=== PATIENT | female | born 1970 | race Caucasian/White ===

== ENCOUNTER → 2017-09-08 14:03 | Outpatient (CLI) | payer OTHER, SELFPAY ==
[2017-09-11 03:07] LABS: HSV 1 By PCR Negative (Negative)
[2017-09-11 09:05] LABS: HSV 2 By PCR Negative (Negative)
== END ==
PROVIDERS: Family Provider Family Medicine; PCP Family Medicine; Visit Provider Dermatology
DX: L08.9 Local infection of the skin and subcutaneous tissue, unspecified (principal)
CPT/HCPCS: 87529; 87798

== ENCOUNTER → 2020-01-27 09:00 | Outpatient (CLI) | payer OTHER, SELFPAY ==
[2020-01-27 08:50] VITALS: BMI 21.7
--- NOTE | 2020-01-27 09:01 | RAD_ITS ---
STUDY: X-RAY - LEFT WRIST REASON FOR EXAM: Painful cyst of the left wrist. TECHNIQUE: 3 view(s) of the wrist were obtained. COMPARISON: None. FINDINGS: Normal visualized distal radius and ulna. Normal radiocarpal articulation. Normal distal radioulnar articulation. Normal carpal bones. Normal carpal articulations. Normal carpometacarpal articulation of the thumb. Normal second through fifth carpometacarpal articulations. Normal visualized metacarpal bones. The soft tissue structures are unremarkable. RAD/Wrist min 3 Views IMPRESSION: Unremarkable x-ray examination of the left wrist. Electronically Signed: Jose Velez MD at 15:19 EDT Tel , Service support ,
== END ==
PROVIDERS: PCP Family Medicine; Referring Provider Orthopaedic Surgery; Visit Provider Orthopaedic Surgery
DX: M25.532 Pain in left wrist (principal)
CPT/HCPCS: 73110

== ENCOUNTER → 2020-02-10 07:37 | Outpatient (CLI) | payer OTHER, SELFPAY ==
[2020-01-27 08:50] VITALS: BMI 21.7
--- NOTE | 2020-02-10 07:38 | MRI_ITS ---
STUDY: MRI LEFT WRIST WITHOUT CONTRAST REASON FOR EXAM: Left wrist pain, radial sided cyst. TECHNIQUE: Standardized fat and water weighted pulse sequences were obtained in all 3 orthogonal planes. COMPARISON: Radiographs 01/27/2020. FINDINGS: Normal visualized distal radius and ulna. Normal distal radioulnar articulation (DRUJ). Normal triangular fibrocartilaginous complex (TFCC). Normal carpal bones. Normal radiocarpal, intercarpal and midcarpal articulations. Normal pisotriquetral articulation. Normal visualized interosseous scapholunate ligament. Normal extensor tendons. Normal flexor tendons. Normal carpal tunnel with a normal median nerve. Normal carpometacarpal articulation of the thumb. Normal second through fifth carpometacarpal articulations. Normal visualized metacarpal bones. There is a mildly lobulated ganglion cyst dorsal and radial to the scaphoid (inversion recovery axial images 11-15; T2 sagittal images 5-12) measuring 0.6 x 2.3 x 1.6 cm (AP x transverse x length). MRI/Upper Ext Joint Only(Routine) IMPRESSION: Ganglion cyst dorsal and radial to the scaphoid. Electronically Signed: Jose Velez MD at 9:04 EDT Tel , Service support ,
== END ==
PROVIDERS: PCP Family Medicine; Referring Provider Orthopaedic Surgery; Visit Provider Orthopaedic Surgery
DX: M71.332 Other bursal cyst, left wrist (principal)
CPT/HCPCS: 73221

== ENCOUNTER 2020-03-29 12:36 | Day surgery (SDC) | payer OTHER, SELFPAY ==
[2020-02-29 09:35] VITALS: BMI 21.7
[2020-03-29] VITALS (7 sets, daily range): BP systolic 143–171; BP diastolic 60–91; PULSE 66–84; RESP 16–18; TEMP 36.4–37; O2SAT 95–98; BMI 22.3
--- NOTE | 2020-03-29 | GANG_PTH ---
PATIENT: NAHOMY PADGETT LOC: [facility] [place] U#:[id number] AGE/SX: 50/F ROOM: RE03/29/[address]: Dr. Stella Vanegas DO : 1970 BED: DIS: 03/29/2020 SPEC #: [id number] RECD: 03/29/20 08:22 STATUS: TRACY CIRO #: [id number] BRITTNI: 03/29/20 00:[address]: Stella Vanegas DEPT: SURGICAL PATHOLOGY RECD BY: José Lynne ENTERED: 03/30/20 08:23 SP TYPE: GANGLION OTHR DR: Dr. Jacob Sanchez MD Tissues: GANGLION CYST Procedures: Surgery Specimen Level III HEADER OPERATION: Dorsal radial wrist ganglion cyst excision PRE-OP DIAGNOSIS: Ganglion cyst of dorsum of left wrist TISSUE SUBMITTED: Ganglion cyst left radial wrist MICROSCOPIC DIAGNOSIS Ganglion cyst left radial wrist, excision: Consistent with ganglion cyst. KATRIN:prasanna 03/31/20 MICROSCOPIC DESCRIPTION Slides are reviewed. GROSS DESCRIPTION Received in fixative is one container labeled with the patient's name and designated ganglion cyst left radial wrist. The specimen consists of a piece of lopez, indurated tissue measuring 1.8 x 1 x 1 cm. The specimen is serially sectioned and submitted entirely in one cassette. / KATRIN:prasanna 03/30/20 TC:5 [facility]: [id number]
--- NOTE | 2020-03-29 11:00 | HP_ITS ---
This note was generated with Omnigy dictation software. It may contain incorrect words, spelling, and punctuation that were not noted in checking the note before signing. Intake Vital Signs 02/29/20 BMI 21.7 Intake Visit Reasons: left wrist Allergies No Known Allergies Allergy (Unverified 01/27/20 08:53) HPI left wrist: Surgical H&P: Yes Details: Parts of this documentation were recorded by a scribe, this documentation accurately reflects the service provided and the decisions made by me, Dr. Stella Vanegas, DO 02/29/20 0981. NAHOMY PADGETT is a 49 year old F here today for F/U on left wrist ganglion cyst after having MRI completed. Denies numbness, tingling or other associated symptoms. She has increased pain with thumb range of motion. The wrist is now has some achiness. She notes that she is unable to put any pressure on her wrist due to pain. She does also have a burning pain over the radial side of her wrist. ROS Musc Reports joint pain, Reports radiating pain into limb Skin/Breast Reports system reviewed and no additional complaints, except as docu Neuro Yes system reviewed and no additional complaints, except as docu Ortho Exam Right Wrist/Hand Skin/Wound: No Ecchymosis Left Wrist/Hand Skin/Wound: No Ecchymosis WRIST: palpable cyst over radial side of wrist. positive fluid wave Assessment & Plan Problems 1. Ganglion cyst of dorsum of left wrist M67.432 Plan Personally reviewed patients MRI of the left wrist. Patient educated that she does have a ganglion cyst. Treatment options are do nothing or have an aspiration and injection in the office or have it surgically removed. Patient wishes to proceed with left dorsal/radial ganglion cyst excision. Reviewed the pre-operative plans with the patient. Risks and benefits of the procedure were fully explained, including but not limited to infection, neurovascular injury, continued pain, arthritis, stiffness, need for further surgery, re-injury, DVT, PE, general risks of anesthesia, and loss of limb or life. The patient understands all the risks and does wish to proceed with written consent. Educated that she will be placed into a small splint post op and she will need to keep the splint and dressing and clean and dry for about 2 weeks. We discussed the current risk associated COVID-19. While it is understood that there is a community spread of COVID 19 the risk of kamaljit COVID-19 while at [facility] is very low, however, the risk cannot be completely mitigated because of the community spread of the disease. We discussed in detail the risk of exposure to and or potential harm posed by the COVID-19 virus with having a surgery/procedure at this time versus the risk of delaying the surgery/procedure. Is not possible to know either the risk of delaying the surgery procedure or chance of getting an infection with perfect accuracy, but a joint decision was made to proceed at this time with a schedule surgery/procedure as indicated on the consent form. Patient was notified that we will need to comply with any screening or testing [facility] wishes to perform or that surgery may be delayed for any positive results. Follow up 2 weeks post op or sooner if pain, swelling, numbness or associated symptoms, or concerns develop. All questions answered. Patient in agreement of plan. Coding Level of Care Code Off vis,est,level 4 Diagnoses Ganglion cyst of dorsum of left wrist M67.432 COVID (Procedure Consent) Procedure Criteria Procedure Criteria: Yes Elective The surgeon/proceduralist and patient have discussed in detail the risk of exposure to and/or potential harm posed by the COVID-19 virus with having a surgery/procedure at this time versus the risk of? delaying the surgery/procedure. It is not possible to know either the risk of delaying the surgery or procedure or chance of getting an infection with perfect accuracy, but a joint decision was made between the patient and the surgeon/proceduralist ?to proceed at this time with the scheduled surgery/procedure as indicated on the consent form.
[2020-03-29] MEDS: Lactated Ringers 1,000 ML 75 ML IV ×2 (14:11→17:33)
--- NOTE | 2020-03-29 15:05 | OP.PCM_ITS ---
Report of Operation Date of Procedure: 03/29/20 Pre-Operative Diagnosis: left dorsal radial ganglion cyst Post-Operative Diagnosis: same Surgery/Procedure Performed:: left dorsal ganglion cyst excision radar air traffic controller: Rhett Hernadez Type of Anesthesia:: General Anesthesiologist: Srinivas Branch Specimen's removed: ganglion cyst Fluids Replaced: 800cc lr Description of Procedure: Preop note Patient is a 50-year-old female with continued left wrist pain for quite some time head fullness MRI confirms ganglion cyst. Risk benefits alternatives were discussed with patient. Risk include but not limited to blood loss, blood clot, infection, nerve or vessel injury, failure procedure, loss of life and loss of limb. Patient elected proceed with left wrist goal gait dorsal ganglion cyst excision. Operative Patient seen examined preop pulmonary. Left arm was marked. Patient brought to the operating placed supine the operating table. Signed, anesthesia, antibiotics were measured. Left arm was prepped and draped in usual sterile technique with a tourniquet in her upper arm. All bony promises well-padded SCDs placed on her lower lab bilateral lower extremity.We then made marked a curvilinear incision over the aspect over the dorsal radial ganglion. Left long was in left arm with an elevated single and in turn was raised her pressure 250 torr. We then used a 15 blade after timeout to catheter the skin dissect down to times the level of the ganglion cyst. We did tediously and systematically protect all neurovascular structures and tendons at all times. We moved her EPL out of the way except that was right on top of the ganglion. We talked we did took pictures as well that we will give a copy to the family. Presently again protecting all neurovascular structures were able to then dissect and remove the ganglion cyst in its entirety we did find the stalk and ablate the stalk as well. We then irrigated the incision with copious of the sterile saline. We closed the skin with 4-0 Vicryl in a running 4-0 Monocryl. Trach was deflated. Patient taught procedure well no complication transferred recovery room stable condition Postoperative note Left thumb spica Pharm[facility] prescription Call with increased pain numbness tingling further issue arise Follow-up in 2 weeks [place] disclaimer This note was generated with Captimo dictation software. It may contain incorrect words, spelling, and punctuation that were not noted in checking the note before signing. *
--- NOTE | 2020-03-29 15:05 | PCM.DC.ORTHO ---
Discharge Diet: No Restrictions - leave splint on until postop visit in 2 weeks, elevate above heart, call with concerns Discharge Activity: May Not Drive May shower in (days): 1 Ice area for (Minutes): 20 - Every hour while awake. Weight Bearing Status: Weight bearing as tolerated Keep extremity elevated above heart level: Operative Extremity Call your doctor if your incision/area has: Continuous Slow Oozing, Sudden Increased Bleeding, Increased Pain/ Swelling, Increased Redness, Foul Smelling Discharge Call your doctor if you observe: Fever of 101 or Higher, Coldness, Increased Pain, Numbness or Tingling, Change in Color, Calf discomfort Allergies/Adverse Reactions: Allergies No Known Allergies Allergy (Unverified 03/21/20 14:12) Medications to take at Discharge bupropion HCl 150 mg tablet,12 hr sustained-release 150 mg PO DAILY 01/27/20 hydrochlorothiazide 25 mg tablet 25 mg PO DAILY tab 01/27/20 multivitamin 1 tab PO DAILY 01/27/20 sertraline 50 mg tablet 50 mg PO DAILY 01/27/20 trazodone 50 mg tablet 50 mg PO QHS 01/27/20 Hydrocodone Bitart/Apap 5-325 [[place] 5MG-325MG] 1 - 2 tab PO Q6H PRN PRN 5 Days #40 tab 03/29/20 The following prescriptions were given: Hydrocodone Bitart/Apap 5-325 [[place] 5MG-325MG] 1 - 2 tab PO Q6H PRN PRN 5 Days #40 tab PRN Reason: Pain Transmission Status: Received by FRANCISCO XIAO [facility] Primary Care Physician: Jacob Sanchez MD [Primary Care Provider] - Test Results: Test results from this visit will be discussed in further detail at your follow-up appointment, if applicable. Please Follow Up With: Stella Vanegas, DO - [phone]
[2020-03-29] MEDS: Cefazolin 2 GM in 0.9% Normal Saline 100 ML IV (15:32)
[2020-03-29] MEDS: Mupirocin Ointment 22gm Tube 1 APPLIC (17:10)
[2020-03-29] MEDS: HYDROcodone Bitartrate/Apap 5/325 Tablet PO (18:05)
== END 2020-03-29 18:50 | disposition home or self-care (01) ==
LOC: SDC 12:37 → AC 12:38
PROVIDERS: Anesthesiology; PCP Family Medicine; Referring Provider Orthopaedic Surgery; Visit Provider Orthopaedic Surgery
PROC: (CPT 25111; principal; 2020-03-29 15:25)
DX: M67.432 Ganglion, left wrist (principal); Z11.59 Encounter for screening for other viral diseases; I10 Essential (primary) hypertension; F41.9 Anxiety disorder, unspecified; F32.9 Major depressive disorder, single episode, unspecified; Z79.899 Other long term (current) drug therapy
CPT/HCPCS: 01810; 25111; 87635; 88304; C9803; J7120; J2405; U0003

== ENCOUNTER → 2020-06-08 | Outpatient (CLI) | payer OTHER, SELFPAY ==
[2020-04-11 09:25] VITALS: BMI 21.7
== END | disposition home or self-care (01) ==
LOC: LABSPEC 14:45
PROVIDERS: PCP Family Medicine; Referring Provider Family Medicine; Visit Provider Family Medicine
DX: Z20.822 Contact with and (suspected) exposure to COVID-19 (principal)
CPT/HCPCS: 87635; U0005; U0003

== ENCOUNTER → 2021-11-16 | Outpatient (CLI) | payer OTHER, SELFPAY ==
[2021-11-16 18:07] LABS: Anion Gap 5 (5-15); BUN 16 mg/dL (7-18); BUN/Creat Ratio 22.1 RATIO (10-20); Chloride 103 mmol/L (98-107); Cholesterol 256 mg/dL (200); Creatinine, Serum 0.72 mg/dL (0.55-1.02); EST Glomerular Filtration Rate 90 mL/min (>60); Est Glom Filt Rate - Afr Amer 109 mL/min (>60); Glucose 89 mg/dL (74-106); High Density Lipoprotein 55 mg/dL; Potassium 3.8 mmol/L (3.5-5.1); Sodium Level 139 mmol/L (136-145); Triglycerides 204 mg/dL; Very Low Density Lipoprotein 41 mg/dL (5-40)
== END | disposition home or self-care (01) ==
LOC: MFPLAB 14:57
PROVIDERS: PCP Family Medicine; Referring Provider Family Medicine; Visit Provider Family Medicine
DX: I10 Essential (primary) hypertension (principal)
CPT/HCPCS: 36415; 80048; 80061

== ENCOUNTER → 2022-11-18 | Outpatient (CLI) | payer OTHER, SELFPAY ==
[2022-11-18 10:34] LABS: ALB/GLOB Ratio 0.9 RATIO (0.9-2.4); AST(SGOT) 16 U/L (15-37); Alanine Aminotransfer ALT/SGPT 21 U/L (13-56); Albumin, Serum 3.7 g/dL (3.2-5.0); Alkaline Phosphatase 68 U/L (45-117); Anion Gap 4 (5-15); BUN 15 mg/dL (7-18); BUN/Creat Ratio 18.7 RATIO (10-20); Calcium,Total 9.2 mg/dL (8.5-10.1); Chloride 104 mmol/L (98-107); Cholesterol 209 mg/dL (200); EST Glomerular Filtration Rate 80 mL/min (>60); Est Glom Filt Rate - Afr Amer 96 mL/min (>60); Globulin 3.9 g/dL (2.2-4.2); Glucose 86 mg/dL (74-106); High Density Lipoprotein 71 mg/dL; Potassium 3.8 mmol/L (3.5-5.1); Protein, Total 7.6 g/dL (6.4-8.2); Sodium Level 138 mmol/L (136-145); Triglycerides 122 mg/dL; Very Low Density Lipoprotein 24 mg/dL (5-40)
== END | disposition home or self-care (01) ==
PROVIDERS: PCP Family Medicine; Referring Provider Family Medicine; Visit Provider Family Medicine
DX: E78.00 Pure hypercholesterolemia, unspecified (principal)
CPT/HCPCS: 36415; 80053; 80061

== ENCOUNTER → 2023-06-20 | Outpatient (CLI) | payer OTHER, SELFPAY ==
--- NOTE | 2023-06-20 10:37 | BI_ITS ---
MAMMOGRAPHY - BILATERAL SCREENING REASON FOR EXAM: Female, 53 years old. Routine annual screening examination. PERTINENT HISTORY: Non-contributory. TECHNIQUE: Digital bilateral breast maite (3D mammographic acquisition) in the CC and MLO projections. 2-D mediolateral oblique (MLO) and craniocaudad (CC) views of both breasts were obtained. CAD: Full Field Digital Mammography with Computer Added Detection was performed. COMPARISON: Comparison is made with prior outside examination dated April 19, 2022. FINDINGS: Breast Composition: The breasts are extremely dense, which lowers the sensitivity of mammography. There are no dominant masses or suspicious calcifications. No other significant abnormalities are identified. There has been no significant change since the prior study. BI/SCRN MAMM (CAD)W/MAITE BILAT IMPRESSION: Stable bilateral screening mammogram. Yearly follow-up mammogram recommended. (A) ASSESSMENT CATEGORY: BIRADS Category 1: Negative. A letter regarding these results will be sent to the patient by the facility within 30 days. Approximately 10% of breast cancers are not detected by mammography. A normal mammogram should not delay biopsy of a clinically suspicious abnormality. [id number] Electronically Signed: Jermaine Aragon MD at 13:56 EST ,
--- OUTSIDE RECORDS SUMMARY | 2023-06-20 10:50 | XMS RPT_ITS | CCD ---
Author Name Unknown Address [address] [place] [address] Organization [facility] Care Team Providers Care Promotion Producer Name Role Phone Urbano Cardenas MD Primary Care Provider [phone] PROVIDER, UNKNOWN Referring Unavailable URBANO CARDENAS Primary Care Unavailable Urbano Cardenas MD Primary Care Provider [phone] Urbano Cardenas MD Primary Care Provider [phone] URBANO CARDENAS Primary Care Unavailable TAD ROSA Attending Unavail able Allergies Allergy Classification Reported Allergen(s) Allergy Type Date of Onset Reaction(s) Facility (11 sources) Cat; Translations: [CATS] Propensity to adverse reactions 01-29-2006 Cough [facility] Work Phone: (11 sources) Sulfamethoxazole ; Translations: [SULFAMETHOXAZOL E] Drug Allergy 02-15-2010 Hives [facility] Work Phone: Medications Current Medications Medication Drug Class(es) Dates Sig (Normalized) Sig (Original) nystatin [id number] unt/ml oral suspension (1 source) Polyene Antifungal Start: 02-07-2022 End: 02-14-2022 take 5 mL by mouth four times daily nystatin (MYCOSTATIN) 100,000 unit/mL suspension Take 5 mL by mouth four times daily for 7 days. Swish and swallow. 140 mL 0 02/07/2022 02/14/2022 Active Completed/Discontinued Medications Medication Drug Class(es) Dates Sig (Normalized) Sig (Original) clobetasol propionate 0.0005 mg/mg topical ointment (9 sources) Corticosteroid Start: 05-05-2019 clobetasol (TEMOVATE) 0.05 % ointment Apply TO AFFECTED AREA BID x 4 weeks then use once weekly for maintenance 30 g 0 05/05/2019 Active Problems Active Problems Problem Classification Problem Date Documented Date Episodic/Chronic Menopausal disorders (10 sources) Menopausal flushing; Translations: [Menopausal and female climacteric states] Onset: 11-14-2009 Chronic Nonmalignant breast conditions (9 sources) Fibrocystic disease of breast; Translations: [Diffuse cystic mastopathy of unspecified breast] Onset: 07-22-2007 07-22-2007 Chronic Other diseases of bladder and urethra (9 sources) Disorder of bladder; Translations: [Other specified disorders of bladder] Onset: 06-20-2010 06-20-2010 Chronic Other female genital disorders (9 sources) Premenstrual tension syndrome; Translations: [Premenstrual tension syndrome] Onset: 07-22-2007 07-22-2007 Chronic Other female genital disorders (9 sources) Dyspareunia; Translations: [Dyspareunia] Onset: 01-03-2012 01-03-2012 Chronic Other female genital disorders (1 source) Vaginal discharge; Translations: [Other specified noninflammatory disorders of vagina] Episodic Other screening for suspected conditions (not mental disorders or infectious disease) (17 sources) Patient encounter status; Translations: [Encounter for other screening for malignant neoplasm of breast] Onset: 11-14-2009 11-14-2009 Episodic Past or Other Problems Problem Classification Problem Date Documented Date Episodic/Chronic Abdominal pain (10 sources) Left lower quadrant pain; Translations: [Left lower quadrant pain] Onset: 06-20-2010 Episodic Calculus of urinary tract (18 sources) Ureteric stone; Translations: [Calculus of ureter] Onset: 07-28-2007 07-28-2007 Episodic Genitourinary symptoms and ill-defined conditions (9 sources) Nocturia; Translations: [Nocturia] Onset: 06-20-2010 06-20-2010 Episodic Other female genital disorders (9 sources) Cervical intraepithelial neoplasia grade 2; Translations: [Moderate cervical dysplasia] Onset: 01-07-2006 01-07-2006 Episodic Other female genital disorders (9 sources) Female genital organ symptoms; Translations: [Unspecified condition associated with female genital organs and menstrual cycle] Onset: 06-20-2010 06-20-2010 Episodic Other female genital disorders (9 sources) Vulval and/or perineal noninflammatory disorders; Translations: [Noninflammatory disorder of vulva and perineum, unspecified] Onset: 01-03-2012 01-03-2012 Episodic Other female genital disorders (9 sources) Lesion of vulva; Translations: [Other specified noninflammatory disorders of vulva and perineum] Onset: 09-29-2012 05-28-2021 Episodic Other inflammatory condition of skin (9 sources) Pruritus of skin; Translations: [Pruritus, unspecified] Onset: 01-03-2012 01-03-2012 Episodic Spondylosis; intervertebral disc disorders; other back problems (9 sources) Backache; Translations: [Dorsalgia, unspecified] Onset: 06-20-2010 06-20-2010 Episodic Results Test Name Value Interpretation Reference Range Facil ity Vital Signs Date Time Vital Sign Value Performing Clinician Faci litlili 03-25-2022 09:50-0400 Diastolic blood pressure 67 mm[Hg] Nigel Gastelum MD Work Phone: [facility] 03-25-2022 09:50-0400 Heart rate 61 /min Nigel Gastelum MD Work Phone: [facility] 03-25-2022 09:50-0400 Respiratory rate 16 /min Nigel Gastelum MD Work Phone: [facility] 03-25-2022 09:50-0400 SaO2% (BldA) [Mass fraction] 100 % Nigel Gastelum MD Work Phone: [facility] 03-25-2022 09:50-0400 Systolic blood pressure 159 mm[Hg] Nigel Gastelum MD Work Phone: [facility] 03-25-2022 08:20-0400 Body temperature 97.9 [degF] Nigel Gastelum MD Work Phone: [facility] 02-26-2022 09:59-0400 Body height 167.6 cm Tad Eastman MD Work Phone: [facility] 02-26-2022 09:59-0400 Body weight 65.32 kg Tad Eastman MD Work Phone: [facility] 02-26-2022 09:59-0400 Diastolic blood pressure 64 mm[Hg] Tad Eastman MD Work Phone: [facility] 02-26-2022 09:59-0400 Systolic blood pressure 110 mm[Hg] Tad Eastman MD Work Phone: [facility] 01-23-2022 14:35-0400 Body weight 65.86 kg Jasmin Zee APRN.ICT PROGRAMMER Work Phone: [facility] 01-23-2022 14:35-0400 Diastolic blood pressure 80 mm[Hg] Jasmin Zee TANK CLEANING SUPERVISOR.ICT PROGRAMMER Work Phone: [facility] 01-23-2022 14:35-0400 Systolic blood pressure 118 mm[Hg] Jasmin Zee TANK CLEANING SUPERVISOR.ICT PROGRAMMER Work Phone: [facility] Encounters Encounter Date Encounter Type Care Provider Facility Start: 05-07-2023 End: 05-07-2023 ambulatory [facility] Facility:[facility] Start: 05-29-2022 ambulatory UNKNOWN PROVIDER Facili ty:[facility] Start: 05-29-2022 End: 05-29-2022 Subsequent hospital visit by physician [facility] Work Phone: Radiology Procedures Date Procedure Procedure Detail Performing Clinician Start: 05-29-2022 Us breast uni real t kashif with image limited Tad Eastman MD Work Phone: Start: 04-19-2022 ANDREY SCREENING W MAITE Martinez MD Work Phone: Start: 04-19-2022 Mammography Tad Yinka Eastman MD Work Phone: Start: 03-25-2022 Colonoscopy flx dx w /collj spec when pfrmd Tad Eastman MD Work Phone: Start: 03-25-2022 Colonoscopy Tad Yinka Eastman MD Work Phone: Start: 01-23-2022 Urnls dip stick/tabl et rgnt auto w/o microscopy Jasmin Zee APRN.GAURANG Work Phone: Start: 07-09-2018 Mammography Jasmin patterson APRN.CNP Work Phone: Plan of Treatment Date Care Activity Detail Author Start: 03-25-2032 Colonoscopy COLONOSCOPY [facility] Start: 03-25-2032 COLORECTAL CANCER SCREENING COLORECTAL CANCER SCREENING [facility] Start: 03-04-2029 Urine microalbumin profile DTaP,Tdap,Td Vaccine (2 - Td or Tdap) [facility] Start: 04-19-2023 Mammography [facility] Start: 01-31-2023 Covid-19 Vaccine () Covid-19 Vaccine () [facility] Start: 01-31-2023 Influenza vaccination Influenza Vaccine (#1) [facility] Start: 06-02-2022 DEPRESSION ASSESSMENT DEPRESSION ASSESSMENT [facility] Start: 05-24-2022 Shingrix Vaccine (2 of 2) Shingrix Vaccine (2 of 2) [facility] Start: 01-31-2022 Influenza vaccination INFLUENZA (#1) [facility] Start: 06-02-2021 DEPRESSION ASSESSMENT DEPRESSION ASSESSMENT [facility] Start: 12-26-2020 COVID-19 VACCINE (4 - Booster for Moderna series) COVID-19 VACCINE (4 - Booster for Moderna series) [facility] Start: 10-21-2020 COVID-19 VACCINE (4 - Booster for Moderna series) COVID-19 VACCINE (4 - Booster for Moderna series) [facility] Start: 2020 SHINGRIX VACCINE (1 of 2) SHINGRIX VACCINE (1 of 2) [facility] Start: 07-09-2019 Mammography MAMMOGRAM [facility] Start: 2015 COLOGUARD (FIT-DNA) COLOGUARD (FIT-DNA) [facility] Start: 2015 Colonoscopy COLONOSCOPY [facility] Start: 2015 COLORECTAL CANCER SCREENING COLORECTAL CANCER SCREENING [facility] Start: [address] COLONOGRAPHY [facility] Start: 2015 DIABETES SCREEN DIABETES SCREEN [facility] Start: 2015 Diabetes Screening Diabetes Screening [facility] Start: 2015 FECAL OCCULT BLOOD FECAL OCCULT BLOOD [facility] Start: 2015 Lipid 1996 panel - Serum or Plasma Lipid Screening [facility] Start: 2015 LIPID SCREEN LIPID SCREEN [facility] Start: 2015 SIGMOIDOSCOPY SIGMOIDOSCOPY [facility] Start: 1989 Urine microalbumin profile DTAP,TDAP,TD (1 - Tdap) [facility] Start: 1988 HEPATITIS C SCREENING HEPATITIS C SCREENING [facility] Start: 1988 HIV SCREENING HIV SCREENING [facility] Start: 1982 Adult depression screening assessment DEPRESSION SCREENING [facility] Start: 1970 HEPATITIS B (1 of 3 - 3-dose series) HEPATITIS B (1 of 3 - 3-dose series) [facility] Start: 1970 Hepatitis B Vaccine (1 of 3 - 3-dose series) Hepatitis B Vaccine (1 of 3 - 3-dose series) [facility] BACTERIAL VAGINOSIS AMPLIFICATION BACTERIAL VAGINOSIS AMPLIFICATION Lab Routine Vaginal discharge 01/23/2022 3:28 PM EDT [facility] Work Phone: KEIKO / TRICHOMONA S AMPLIFICATION KEIKO / TRICHOMONAS AMPLIFICATION Microbiology Routine Vaginal discharge 01/23/2022 3:28 PM EDT [facility] Work Phone: End: 03-28-2023 ANDREY SCREENING W MAITE ANDREY SCREENING [facility] Radiology Routine Encounter for screening mammogram for malignant neoplasm of breast 1 Occurrences starting 02/26/2022 until 03/28/2023 [facility] Work Phone: Immunizations Immunization Date Immunization Notes Care Provider Jaki macias 03-29-2022 influenza virus vacc ine, unspecified formulation Screen Wstr [facility] Payers Date Payer Category Payer Private Health Insurance [id number] 2021 Private Health Insurance [id number] Social History Date Type Detail Facility Start: 01-23-2022 Tobacco smoking stat us NHIS Never smoked tobacco [facility] Start: 01-23-2022 Tobacco use and exposure Smoke less tobacco non-user [facility] Start: 01-23-2022 End: 04-11-2022 Alcohol intake Current drinker of alcohol (finding) [facility] Start: 05-07-2020 End: 01-23-2022 Alcohol intake [facility] Start: 1970 Sex Assigned At Not on file [facility] Start: 01-13-2022 End: 03-25-2022 Exposure to SARS-CoV-2 (event) Not sure [facility] Start: 05-07-2020 End: 04-11-2022 Tobacco use panel [facility] National Score (1-10 0), lower number is lower risk Not on file [facility] Clinical Notes 04-29-2006 to 05-07-2023 Janee Martineznenberg, CT - 05/29/2022 9:00 AM ESTLetter - Mammography Coordinator - 04/22/2022 9:32 AM Stephanie Stewart RN - 03/25/2022 9:32 AM Stephanie Hernandez RN - 03/25/2022 9:20 AM EDT Note Date & Type Note Facility 05-07-2023 Note HNO ID: [id number] Author: Tad Rosa MD Service: ? Author Type: Physician Type: Progress Notes Filed: 05/07/2023 2:53 PM Note Text: Occupational Nurse offered: Patient declinesSadie Roe is a 53 year old who presents for an annual gynecologic exam with complaints, increased bloating with food within the last year. Noticed she has gained weight despite not changing her eating and activity habits. Postmenopausal: still has ovaries; s/p vaginal hysterectomy in 2005. Denies night sweats and hot flashes HRT use: No. Last Pap: 06/25/2014 normal HPV: 11/29/2005 positive History of abnormal pap: Yes, dysplasia Last mammogram: 2021 normal History of abnormal mammogram: No Sexually active: No Hot flashes: No Night sweats: No OB History T2 L2 SAB0 IAB0 Ectopic0 Multiple0 Live Births0 Dimensional Inspector History LMP: 12/30/2005, Hysterectomy Age at Menarche: Age at First : Age at Menopause: Dimensional Inspector History Comments: Sexual Activity: Yes; Male; -vasectomy, Hysterectomy Contraception: Surgical PAST MEDICAL HISTORY Diagnosis Date Basal cell carcinoma of face to legs AND both arms also Dysplasia of cervix, unspecified 12/05 moderate dysplasia. Endometriosis of uterus 02/06/06 Hypertension Irritable bowel syndrome Premenstrual tension syndromes PMS PAST SURGICAL HISTORY Procedure Laterality Date ABDOMINAL SURGERY HX CAUTERY CERVIX CRYOCAUTERY INITIAL/REPEAT 06/02/1996 COLONOSCOPY 03/25/2022 repeat in 10 years COLONOSCOPY W/BIOPSY SINGLE/MULTIPLE 06/02/1998 COLPOSCOPY CERVIX UPPER/ADJACENT VAGINA 06/02/1996 COLPOSCOPY CERVIX UPPER/ADJACENT VAGINA 11/30/2005 moderate dysplasia LAPS ABD PRTMANDOMENTUM DX W/WO SPEC BR/WA SPX 07/27/1996 Laparoscopy for dyspurenia and chronic pelvic pain with negative examination PAST SURGICAL HISTORY OF basal cell carcinoma excised from face x 2 SKIN BIOPSY HX VAGINAL HYSTERECTOMY VAGINAL HYSTERECTOMY UTERUS 250 GM/< 02/06/2006 Hysterectomy, vaginal PATH benign FAMILY HISTORY Problem Relation Age of Onset No Known Problems Mother Ischemic Heart Disease Father stent in place No Known Problems Brother No Known Problems Brother Cancer Maternal Grandmother pancreatic Ischemic Heart Disease Maternal Grandfather several mi's Emphysema Paternal Grandmother of it mid 60's Colon Cancer Paternal Grandfather No Known Problems Daughter Depression Daughter SOCIAL HISTORY Social History Tobacco Use Smoking status: Never Smokeless tobacco: Never Vaping Use Vaping Use: Never used Substance Use Topics Alcohol use: Yes Alcohol/week: 3.0 standard drinks of alcohol Types: 3 Glasses of Wine (5oz) per week Comment: occasionally Drug use: No REVIEW OF SYSTEMS Abdomen: No abdominal pain, nausea, vomiting, diarrhea, or constipation. No bloating, early satiety, indigestion, or increased flatulence. Bladder: No dysuria, gross hematuria, urinary frequency, urinary urgency, or incontinence Breast: No breast lumps, nipple d/c, overlying skin changes, redness or skin retraction Allergies and current medication updated:Yes EXAM: BP 120/78 Ht 5' 6 (1.68m) Wt 151 lb (68.5kg) LMP 12/30/2005 BMI 24.38 kg/(m2). GENERAL: pleasant, female in no apparent distress HEENT: Normocephalic, atraumatic, mucus membranes moist, and no lesions NECK: Supple, full range of motion, no adenopathy, and thyroid normal DERMATOLOGY: Normal, without lesions, non-icteric, and non-hirsute BREAST: soft, non-tender, symmetric, no dominant mass, normal nipple-areolar complex, no lymphadenopathy, and no nipple discharge ABDOMEN: soft, non-tender, and no masses PELVIC: external genitalia normal, normal Bartholin's glands, urethra, [place]'s glands, no vulvar lesions, good vaginal support, physiologic discharge present, normal appearing perineal body and perianal region, cervix surgically absent BIMANUAL: no adnexal masses and non-tender RECTOVAGINAL: deferred. NEURO: alert and oriented x3,exam grossly non-focal EXTREMITIES: normal ASSESSMENT/PLAN: 1) Health maintenance: Pap done with HPV. Mammogram ordered Nutrition, exercise and routine health maintenance exams reviewed. Calcium/Vitamin D supplementation information provided. Colon cancer screening: up to date with screening 2) Follow up one year or sooner as needed 3) If still with bloating will call or send [facility] message and will order pelvic us. Declines today. Reviewed eliminating dairy and gluten. Tad Adame MD [facility] 05-29-2022 Note HNO ID: [id number] Author: JEFFERSON Pino Service: Radiology Author Type: Technologist Type: Progress Notes Filed: 05/29/2022 9:38 AM Note Text: Radiology Service Progress Note PATIENT NAME: Nahomy Park DATE OF SERVICE: May 29, 2022 TIME: 9:38 AM PATIENT IDENTITY VERIFICATION COMPLETED USING TWO (2) IDENTIFIERS: Name and Date of confirmed by patient verbally and Name and Date of confirmed by identification band. FALL SCREENING: Has the patient had 2 falls in the last year or 1 fall with injury or currently using an Ambulatory Assistive Device (Walker, Cane, Wheelchair, Crutches, etc.)? No PATIENT GENDER DATA: Female. status: : No status: NO. PATIENT RELEVANT IMPLANT DATA REVIEWED: Not Applicable RADIOLOGY DEPARTMENT: Ultrasound PERIPHERAL IV DATA: Not applicable SIGNED BY: JEFFERSON Pino May 29, 2022 9:38 AM [facility] 05-29-2022 History of Presen t illness Narrative Radiology Service Progress Note PATIENT NAME: Nahomy Park DATE OF SERVICE: May 29, 2022 TIME: 9:38 AM PATIENT IDENTITY VERIFICATION COMPLETED USING TWO (2) IDENTIFIERS: Name and Date of confirmed by patient verbally and Name and Date of confirmed by identification band. FALL SCREENING: Has the patient had 2 falls in the last year or 1 fall with injury or currently using an Ambulatory Assistive Device (Walker, Cane, Wheelchair, Crutches, etc.)? No PATIENT GENDER DATA: Female. status: : No status: NO. PATIENT RELEVANT IMPLANT DATA REVIEWED: Not Applicable RADIOLOGY DEPARTMENT: Ultrasound PERIPHERAL IV DATA: Not applicable SIGNED BY: JEFFERSON Pino May 29, 2022 9:38 AM documented in this encounter [facility] 04-22-2022 Miscellaneous Notes April 22, 2022 PID: [id number] Nahomy Park [address] [place] [address] Dear Ms. Park, Your recent breast imaging exam on 04/19/2022 showed a possible finding that requires additional imaging studies for a complete evaluation. Most such findings are probably benign (not cancer). Your mammogram demonstrates that you have dense breast tissue, which could hide abnormalities. Dense breast tissue, in and of itself, is a relatively common condition. Therefore, this information is not provided to cause undue concern; rather, it is to raise your awareness and promote discussion with your health care provider regarding the presence of dense breast tissue in addition to other risk factors. If you have a healthcare provider who ordered/prescribed your screening mammogram: Please call [phone] or [phone]: [phone] to schedule an appointment for your additional imaging (if you have not already done so). If you DO NOT have a healthcare provider (ie you did not have an order/prescription for your screening mammogram): Please call to schedule an appointment for your additional imaging (if you have not already done so). You must have an order/prescription from your physician when calling to schedule your appointment. If your order/prescription is not electronic, you must bring the hard copy with you on the day of your exam to avoid delays. Your imaging studies and reports are kept on file at [facility] as part of your permanent medical record, and are available for your continuing care. Thank you for allowing us to help in meeting your health care needs. Sincerely, Dr. Antoine Interpreting Radiologist [facility] (Additional imaging) documented in this encounter [facility] 03-25-2022 Nurse Note Patient awake and oriented and freely passing flatus. Denies any complaints of discomfort. Stephanie Lopez RN Arrived in phase II via cart. Left lateral position. Sedated, but responds to verbal stimuli. Color normal; skin warm and dry. Respirations wnl and unlabored. Abdomen soft and with + bowel sounds in quads X 4. Patient resting comfortably. Stephaine Lopez RN documented in this encounter [facility] 03-25-2022 History and physical note Nahomy is a 51 year old who presents for an annual gynecologic exam without complaints. Daughter 1st year resident ER in [place]. 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 Postmenopausal: likely- hysterectomy (ovaries intact) HRT use: No. Last Pap: 06/25/2014 normal HPV: 11/29/2005 negative History of abnormal pap: No Last mammogram: 2019 normal History of abnormal mammogram: Yes fu views benign Sexually active: Yes History of STDS: None Patient concerns for STD exposure: No. Pain with intercourse: No Postcoital bleeding: No Hot flashes: No Night sweats: Yes Vaginal dryness: Yes Exercise: routine Diet: balanced OB History T2 L2 SAB0 IAB0 Ectopic0 Multiple0 Live Births0 Dimensional Inspector History LMP: 12/30/2005, Hysterectomy Age at Menarche: Age at First : Age at Menopause: Dimensional Inspector History Comments: Sexual Activity: Yes; Male; -vasectomy, Hysterectomy Contraception: Surgical PAST MEDICAL HISTORY PAST MEDICAL HISTORY Diagnosis Date Basal cell carcinoma of face to legs & both arms also Dysplasia of cervix, unspecified 12/05 moderate dysplasia. Endometriosis of uterus 02/06/06 Hypertension Irritable bowel syndrome Premenstrual tension syndromes PMS PAST SURGICAL HISTORY PAST SURGICAL HISTORY Procedure Laterality Date CAUTERY CERVIX CRYOCAUTERY INITIAL/REPEAT 1996 COLONOSCOPY W/BIOPSY SINGLE/MULTIPLE 1998 COLPOSCOPY CERVIX UPPER/ADJACENT VAGINA 1996 COLPOSCOPY CERVIX UPPER/ADJACENT VAGINA 11/2005 moderate dysplasia LAPS ABD PRTM&OMENTUM DX W/WO SPEC BR/WA SPX 07/27/96 Laparoscopy for dyspurenia and chronic pelvic pain with negative examination PAST SURGICAL HISTORY OF basal cell carcinoma excised from face x 2 VAGINAL HYSTERECTOMY UTERUS 250 GM/< 02/06/06 Hysterectomy, vaginal PATH benign FAMILY HISTORY FAMILY HISTORY Problem Relation Age of Onset No Known Problems Mother Ischemic Heart Disease Father stent in place No Known Problems Brother No Known Problems Brother Cancer Maternal Grandmother pancreatic Ischemic Heart Disease Maternal Grandfather several mi's Emphysema Paternal Grandmother of it mid 60's Colon Cancer Paternal Grandfather No Known Problems Daughter Depression Daughter SOCIAL HISTORY Social History Tobacco Use Smoking status: Never Smokeless tobacco: Never Vaping Use Vaping Use: Never used Substance Use Topics Alcohol use: Yes Alcohol/week: 7.5 standard drinks Types: 3 Glasses of Wine (5oz) per week Comment: occasionally Drug use: No REVIEW OF SYSTEMS Abdomen: No abdominal pain, nausea, vomiting, diarrhea, or constipation. No bloating, early satiety, indigestion, or increased flatulence. Bladder: No dysuria, gross hematuria, urinary frequency, urinary urgency, or incontinence Breast: No breast lumps, nipple d/c, overlying skin changes, redness or skin retraction Allergies and current medication updated:Yes EXAM: BP 110/64 Ht 5' 6 (1.68m) Wt 144 lb (65.3kg) LMP 12/30/2005 BMI 23.25 kg/(m^2). GENERAL: pleasant, female in no apparent distress HEENT: Normocephalic, atraumatic, mucus membranes moist, and no lesions NECK: Supple, full range of motion, no adenopathy, and thyroid normal DERMATOLOGY: Normal, without lesions, non-icteric, and non-hirsute BREAST: soft, non-tender, symmetric, no dominant mass, normal nipple-areolar complex, no lymphadenopathy, and no nipple discharge ABDOMEN: soft, non-tender, and no masses PELVIC: external genitalia normal, normal Bartholin's glands, urethra, [place]'s glands, no vulvar lesions, cervix surgically absent, good vaginal support, physiologic discharge present, normal appearing perineal body and perianal region BIMANUAL: no adnexal masses, non-tender, and uterus surgically absent RECTOVAGINAL: deferred. NEURO: alert and oriented x3,exam grossly non-focal EXTREMITIES: normal ASSESSMENT/PLAN: 1) Health maintenance: Pap/HPV screening no longer needed Mammogram ordered Nutrition, exercise and routine health maintenance exams reviewed. Calcium/Vitamin D supplementation information provided. Colon cancer screening: colonoscopy ordered 2) Follow up one year or sooner as needed 3) reviewed estroven or relizen. HRT reviewed E only if desired for night sweats. Tad Adame MD UPDATED HISTORY AND PHYSICAL EXAMINATION SERVICE DATE: 03/25/2022 SERVICE TIME: 8:52 AM PHYSICAL EXAM MUST BE COMPLETED ON ADMISSION The History and Physical (completed in the past 30 days) has been reviewed and the patient has been examined. The contents accurately reflect the patient's condition with the following additions or revisions since the H&P was completed. Examination indicates no changes. This H&P can be found in the attached. SIGNATURE: Nigel Gastelum III, MD PATIENT NAME: Nahomy Park DATE: March 25, 2022 TIME: 8:52 AM documented in this encounter [facility] 03-08-2022 Miscellaneous Notes ordered Please send Golytely prep to Johan Soto. Patient is scheduled for colonoscopy on 03/25/2022 JN 03/07 documented in this encounter [facility] 02-26-2022 History of Presen t illness Narrative Nahomy is a 51 year old who presents for an annual gynecologic exam without complaints. Daughter 1st year resident ER in [place]. 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 Postmenopausal: likely- hysterectomy (ovaries intact) HRT use: No. Last Pap: 06/25/2014 normal HPV: 11/29/2005 negative History of abnormal pap: No Last mammogram: 2019 normal History of abnormal mammogram: Yes fu views benign Sexually active: Yes History of STDS: None Patient concerns for STD exposure: No. Pain with intercourse: No Postcoital bleeding: No Hot flashes: No Night sweats: Yes Vaginal dryness: Yes Exercise: routine Diet: balanced OB History T2 L2 SAB0 IAB0 Ectopic0 Multiple0 Live Births0 Dimensional Inspector History LMP: 12/30/2005, Hysterectomy Age at Menarche: Age at First : Age at Menopause: Dimensional Inspector History Comments: Sexual Activity: Yes; Male; -vasectomy, Hysterectomy Contraception: Surgical PAST MEDICAL HISTORY Diagnosis Date Basal cell carcinoma of face to legs & both arms also Dysplasia of cervix, unspecified 12/05 moderate dysplasia. Endometriosis of uterus 02/06/06 Hypertension Irritable bowel syndrome Premenstrual tension syndromes PMS PAST SURGICAL HISTORY Procedure Laterality Date CAUTERY CERVIX CRYOCAUTERY INITIAL/REPEAT 1996 COLONOSCOPY W/BIOPSY SINGLE/MULTIPLE 1998 COLPOSCOPY CERVIX UPPER/ADJACENT VAGINA 1996 COLPOSCOPY CERVIX UPPER/ADJACENT VAGINA 11/2005 moderate dysplasia LAPS ABD PRTM&OMENTUM DX W/WO SPEC BR/WA SPX 07/27/96 Laparoscopy for dyspurenia and chronic pelvic pain with negative examination PAST SURGICAL HISTORY OF basal cell carcinoma excised from face x 2 VAGINAL HYSTERECTOMY UTERUS 250 GM/< 02/06/06 Hysterectomy, vaginal PATH benign FAMILY HISTORY Problem Relation Age of Onset No Known Problems Mother Ischemic Heart Disease Father stent in place No Known Problems Brother No Known Problems Brother Cancer Maternal Grandmother pancreatic Ischemic Heart Disease Maternal Grandfather several mi's Emphysema Paternal Grandmother of it mid 60's Colon Cancer Paternal Grandfather No Known Problems Daughter Depression Daughter SOCIAL HISTORY Social History Tobacco Use Smoking status: Never Smokeless tobacco: Never Vaping Use Vaping Use: Never used Substance Use Topics Alcohol use: Yes Alcohol/week: 7.5 standard drinks Types: 3 Glasses of Wine (5oz) per week Comment: occasionally Drug use: No REVIEW OF SYSTEMS Abdomen: No abdominal pain, nausea, vomiting, diarrhea, or constipation. No bloating, early satiety, indigestion, or increased flatulence. Bladder: No dysuria, gross hematuria, urinary frequency, urinary urgency, or incontinence Breast: No breast lumps, nipple d/c, overlying skin changes, redness or skin retraction Allergies and current medication updated:Yes EXAM: BP 110/64 Ht 5' 6 (1.68m) Wt 144 lb (65.3kg) LMP 12/30/2005 BMI 23.25 kg/(m^2). GENERAL: pleasant, female in no apparent distress HEENT: Normocephalic, atraumatic, mucus membranes moist, and no lesions NECK: Supple, full range of motion, no adenopathy, and thyroid normal DERMATOLOGY: Normal, without lesions, non-icteric, and non-hirsute BREAST: soft, non-tender, symmetric, no dominant mass, normal nipple-areolar complex, no lymphadenopathy, and no nipple discharge ABDOMEN: soft, non-tender, and no masses PELVIC: external genitalia normal, normal Bartholin's glands, urethra, [place]'s glands, no vulvar lesions, cervix surgically absent, good vaginal support, physiologic discharge present, normal appearing perineal body and perianal region BIMANUAL: no adnexal masses, non-tender, and uterus surgically absent RECTOVAGINAL: deferred. NEURO: alert and oriented x3,exam grossly non-focal EXTREMITIES: normal ASSESSMENT/PLAN: 1) Health maintenance: Pap/HPV screening no longer needed Mammogram ordered Nutrition, exercise and routine health maintenance exams reviewed. Calcium/Vitamin D supplementation information provided. Colon cancer screening: colonoscopy ordered 2) Follow up one year or sooner as needed 3) reviewed estroven or relizen. HRT reviewed E only if desired for night sweats. Tad Adame MD Occupational Nurse offered: Patient declines. documented in this encounter [facility] 02-26-2022 Instructions Tad Eastman MD - 02/26/2022 10:22 AM EDT Images from the original note were not included. Miralax/Dulcolax Bowel Prep For this bowel preparation, you will need to purchase the following medications at any pharmacy: Over the counter Miralax (generic name is polyethylene glycol) 8.3 oz or 238 grams Four (4) Dulcolax (generic name is Bisacodyl) tablets 3 days prior to your procedure, you need to be on a low fiber diet (Such as popcorn, beans, seeds, nuts, salad and raw vegetables, corn, fresh and dried fruit and multi-grain bread) YOU MUST BE ON CLEAR LIQUIDS FOR 2 FULL DAYS PRIOR TO YOUR COLONOSCOPY Day one which would be two days before your colonoscopy, you will need to be on clear liquids all day. You may have coffee or tea-black only (no cream), clear broths (beef, chicken or vegetable), apple juice, white grape juice, pop, Gatorade, Powerade, lemonade, Jello, popsicles, Andrea-aid, and water-But nothing red or dark purple in color and no dairy products, tomato or orange juices. Day two which would be the day before your colonoscopy continue clear liquids all day as above. And follow the instructions below: 8:00 AM - Mix the Miralax with 64 oz of Gatorade or another clear liquid of choice and place in refrigerator. Most people say the drink is better cold. 4:00 PM - Take 2 of the Dulcolax tablets with 8 oz of water. 6:00 PM - Start to drink the Miralax mixture. You must finish it by midnight. 8:00 PM - Take the other 2 Dulcolax tablets with 8 oz of water. You may continue to drink clear liquids while you are taking your prep and after you finish it as long as it is before midnight. Drink lots of fluids so you don t become dehydrated. Nothing to drink after midnight the night before the procedure unless you are instructed differently by the physician or nurses. Please remember to take your normal medications the morning of the procedure with a small sip of water especially your blood pressure medications. If you are diabetic, you need to contact your physician about how to take your diabetic medications and/or insulin during the prepping period and the day of your procedure. Any questions please call: Dr. Lara or Dr. Alvarez [phone] Edel Lowry [phone] Dr. Lyon [phone] [facility] nurses [phone] documented in this encounter [facility] 02-07-2022 Miscellaneous Notes Can you please address in Jasmin's absence? Thank you. documented in this encounter [facility] 01-23-2022 Instructions Jasmin Zee APRN.ICT PROGRAMMER - 01/23/2022 2:59 PM EDT Menopause Symptoms Not all women experiences menopause in the same way. For some, menopause can bring on an array of uncomfortable symptoms. Others may experience few if any discomforts. This information has been prepared to help you manage the most common changes associated with the midlife transition. RELIEVING HOT FLASHES * Identify and avoid your hot flash triggers. Common triggers may include stress, caffeine, alcohol, spicy foods, tight clothing, heat and cigarette smoke. * Keep the bedroom cool. Use fans during the day. Wear light layers of clothes with natural fibers. * Try deep, slow abdominal paced breathing (6 to 8 breaths per minute). Practice deep breathing for 15 minutes in the morning, 15 minutes in the evening and at the onset of hot flashes. * Exercise daily. Walking, swimming, dancing and bicycling with helmet are good choices along with yoga. * Add soy protein in the form of food (40-60 mg) to your diet daily in place of animal protein. Promensil and isoflavone tablets have NOT been shown to significantly help menopausal symptoms * Black cohosh (in the form of Remifemin) can be used for hot flashes and has been approved by [place] Commission [place] for only 6 months of use, however has NOT been well studied in the [place] for salvage determiner effects and THERE HAVE BEEN REPORTS OF LIVER TOXICITY WITH BLACK COHOSH USE. (Avoid kava kava, valerian root and beware that most herbal products are NOT regulated in the [place] and some have been associated with liver toxicity) NOTE: HORMONE THERAPY (HT) is the MOST EFFECTIVE treatment and the only FDA approved treatment for menopausal symptoms. Any form of hormones, including 'bioidentical' hormones have risks as well as benefits. * Antidepressants like Effexor (venlaflaxine) a NSRI or Pristiq (desvenlafaxine) another agent, Neurontin (gabapentin) may help block hot flashes and all have risks and benefits like any prescription or off the shelf medicine. * Use of Bellergal is discouraged as it contains an addictive barbiturate. RELIEVING INSOMNIA * Keep the bedroom cool to prevent night sweats. Special chill pillows that are cool are available. * Avoid using sleeping pills. * Exercise daily but not right before bedtime. * Avoid caffeine and alcohol at night. * Take a warm shower at bedtime. COPING WITH MOOD SWINGS, FEARS AND DEPRESSION * Find a self-calming skill to practice, such as yoga, meditation or slow deep breathing. * Avoid tranquilizers, if possible, however prescription anti-depressants can be very effective. * Engage in a creative outlet that fosters a sense of achievement. * Stay connected with your family and community; nurture your friendships. RELIEVING PAINFUL INTERCOURSE * Try using a vaginal water-based moisturizing lotion 3 times a week (like Replens or SILK-E) or lubricant during intercourse like KY jelly or Astroglide. *Local estrogen treatments for the vagina/bladder are available as a cream, tablet or vaginal ring. HELPFUL WEB SITES [email or web address] [email or web address] documented in this encounter [facility] 01-23-2022 History of Presen t illness Narrative Occupational Nurse offered: Patient declines. Nahomy Park is a 51 year old female who presents for problem visit LLQ pain x 5 days HPI: LLQ pain x 5 days. Thought it was possible a kidney stone but pain did not completely resolve and then has increased today. No urinary urgency, dysuria or frequency. [place] like stone was possibly stuck in the bladder. Pain was sharp pickly pain on pelvic floor inside of vagina on the left. Pain would ease if she laid down. Denies vaginal change in discharge odor, irritation or itching. Denies constipation or increased gas. No pain with intercourse except one little sharp pain recently. Thinks is in menopause - bloating, weight gain of 10 lbs in past year, night sweats. Vaginal hysterectomy 2005, ovary sparing. Did not have pelvic ultrasound done in 2019 - ordered for bloating and cramping, LLQ pain.. OB History T2 L2 SAB0 IAB0 Ectopic0 Multiple0 Live Births0 Dimensional Inspector History LMP: 12/30/2005, Hysterectomy Age at Menarche: Age at First : Age at Menopause: Dimensional Inspector History Comments: Sexual Activity: Yes; Male; -vasectomy, Hysterectomy Contraception: Surgical PAST MEDICAL HISTORY Diagnosis Date Basal cell carcinoma of face to legs & both arms also Dysplasia of cervix, unspecified 12/05 moderate dysplasia. Endometriosis of uterus 02/06/06 Hypertension Irritable bowel syndrome Premenstrual tension syndromes PMS PAST SURGICAL HISTORY Procedure Laterality Date CAUTERY CERVIX CRYOCAUTERY INITIAL/REPEAT 1996 COLONOSCOPY W/BIOPSY SINGLE/MULTIPLE 1998 COLPOSCOPY CERVIX UPPER/ADJACENT VAGINA 1996 COLPOSCOPY CERVIX UPPER/ADJACENT VAGINA 11/2005 moderate dysplasia LAPS ABD PRTM&OMENTUM DX W/WO SPEC BR/WA SPX 07/27/96 Laparoscopy for dyspurenia and chronic pelvic pain with negative examination PAST SURGICAL HISTORY OF basal cell carcinoma excised from face x 2 VAGINAL HYSTERECTOMY UTERUS 250 GM/< 02/06/06 Hysterectomy, vaginal PATH benign FAMILY HISTORY Problem Relation Age of Onset No Known Problems Mother Ischemic Heart Disease Father stent in place No Known Problems Brother No Known Problems Brother Cancer Maternal Grandmother pancreatic Ischemic Heart Disease Maternal Grandfather several mi's Emphysema Paternal Grandmother of it mid 60's Colon Cancer Paternal Grandfather No Known Problems Daughter Depression Daughter Social History Tobacco Use Smoking status: Never Smokeless tobacco: Never Substance Use Topics Alcohol use: Yes Alcohol/week: 7.5 standard drinks Types: 3 Glasses of Wine (5oz) per week Comment: occasionally Drug use: No Current Outpatient Medications Medication Sig rosuvastatin (CRESTOR) 5 mg tablet Take 5 mg by mouth once daily. TRAZODONE HCL (TRAZODONE ORAL) Take by mouth daily at bedtime. LORazepam 0.5 mg Tab Take 0.5 mg by mouth as needed. hydrochlorothiazide 50 mg ORAL tablet Take one(1) tablet daily. sertraline hcl(ZOLOFT 100 MG TAB) 2 tablet PO daily DAILY MULTIVITAMIN TAB Take one(1) tablet daily. clobetasol (TEMOVATE) 0.05 % ointment Apply TO AFFECTED AREA BID x 4 weeks then use once weekly for maintenance (Patient not taking: Reported on 01/23/2022) No current facility-administered medications for this visit. Allergies As of Date: 01/23/2022 Allergen Noted Reaction BACTRIM [SULFAMETHOXAZOLE] 02/15/2010 Hives CATS 01/29/2006 Cough Fully Assessed 01/23/2022 REVIEW OF SYSTEMS Abdomen: see HPI Bladder: No dysuria, gross hematuria, urinary frequency, urinary urgency, or incontinence. Allergies and current medication updated:Yes EXAM: BP 118/80 Wt 145 lb 3.2 oz (65.9kg) LMP 12/30/2005 GENERAL: pleasant, female in no apparent distress CHEST: Normal inspiratory effort ABDOMEN: soft, non-tender, and no masses PELVIC: external genitalia normal, normal Bartholin's glands, urethra, [place]'s glands, no vulvar lesions, no cervical lesions, good vaginal support, small amount white discharge present, normal appearing perineal body and perianal region. Pt states had tingly sensation on left with speculum insertion. BIMANUAL: uterus normal size, shape and consistency, no adnexal masses, and Mild tenderness LLQ NEURO: alert and oriented x3,exam grossly non-focal ASSESSMENT/PLAN: 1. LLQ abdominal pain - ICD9: 789.04, ICD10: R10.32 (primary diagnosis) - Discussed causes of LLQ pain - ovarian, bowel, vaginal infection - PELVIC US WHI 2. Vaginal discharge - ICD9: 623.5, ICD10: N89.8 - KEIKO / TRICHOMONAS AMPLIFICATION - BACTERIAL VAGINOSIS AMPLIFICATION 3. Hot flash, menopausal - ICD9: 627.2, ICD10: N95.1 - mostly night sweats, few hot flashes. - Given information on menopausal symptoms and lifestyle changes. Will notify of results. Follow- up as needed. Jasmin Zee APRN.ICT PROGRAMMER Medical Decision Making: Problems: Moderate: New problem with uncertain prognosis Data: Unique test(s) ordered: 3+ Medical Decision Making Level: 4 - Moderate documented in this encounter [facility] documented as of this encounter (statuses as of 01/23/2022) [facility] History of Past illness Narrative* Problem Noted Date Resolved Date GRANULATION TISSUE, ABNORMAL POSTOPERATIVE 04/2905/12/2006 Excessive or frequent menstruation 05/01/2005 07/22/2007 PAIN PELVIC (FEMALE) 05/01/2005 07/22/2007 Dyspareunia 05/01/2005 07/22/2007 documented as of this encounter (statuses as of 02/07/2022) [facility] History of Past illness Narrative* Problem Noted Date Resolved Date GRANULATION TISSUE, ABNORMAL POSTOPERATIVE 04/2905/12/2006 Excessive or frequent menstruation 05/01/2005 07/22/2007 PAIN PELVIC (FEMALE) 05/01/2005 07/22/2007 Dyspareunia 05/01/2005 07/22/2007 documented as of this encounter (statuses as of 02/26/2022) [facility] History of Past illness Narrative* Problem Noted Date Resolved Date GRANULATION TISSUE, ABNORMAL POSTOPERATIVE 04/2905/12/2006 Excessive or frequent menstruation 05/01/2005 07/22/2007 PAIN PELVIC (FEMALE) 05/01/2005 07/22/2007 Dyspareunia 05/01/2005 07/22/2007 documented as of this encounter (statuses as of 03/08/2022) [address]-2006 History of Past illness Narrative* Problem Noted Date Resolved Date GRANULATION TISSUE, ABNORMAL POSTOPERATIVE 04/2905/12/2006 Excessive or frequent menstruation 05/01/2005 07/22/2007 PAIN PELVIC (FEMALE) 05/01/2005 07/22/2007 Dyspareunia 05/01/2005 07/22/2007 documented as of this encounter (statuses as of 04/22/2022) [address]-2006 History of Past illness Narrative* Problem Noted Date Resolved Date GRANULATION TISSUE, ABNORMAL POSTOPERATIVE 04/2905/12/2006 Excessive or frequent menstruation 05/01/2005 07/22/2007 PAIN PELVIC (FEMALE) 05/01/2005 07/22/2007 Dyspareunia 05/01/2005 07/22/2007 documented as of this encounter (statuses as of 04/24/2022) [facility] History of Past illness Narrative* Problem Noted Date Resolved Date GRANULATION TISSUE, ABNORMAL POSTOPERATIVE 04/2905/12/2006 Excessive or frequent menstruation 05/01/2005 07/22/2007 PAIN PELVIC (FEMALE) 05/01/2005 07/22/2007 Dyspareunia 05/01/2005 07/22/2007 documented as of this encounter (statuses as of 06/05/2022) [facility] History of Past illness Narrative* Problem Noted Date Diagnosed Date Resolved Date GRANULATION TISSUE, ABNORMAL POSTOPERATIVE 04/29/2006 05/12/2006 Excessive or frequent menstruation 05/01/2005 07/22/2007 PAIN PELVIC (FEMALE) 05/01/2005 008 Dyspareunia 05/01/2005 07/22/2007 documented as of this encounter (statuses as of 04/06/2023) [address]-2006 History of Past illness Narrative* Problem Noted Date Diagnosed Date Resolved Date GRANULATION TISSUE, ABNORMAL POSTOPERATIVE 04/29/2006 05/12/2006 Excessive or frequent menstruation 05/01/2005 07/22/2007 PAIN PELVIC (FEMALE) 05/01/2005 008 Dyspareunia 05/01/2005 07/22/2007 documented as of this encounter (statuses as of 04/06/2023) [facility] Diagnosis LLQ abdominal pain- Primary Abdominal pain, left lower quadrant Vaginal discharge Leukorrhea, not specified as infective Hot flash, menopausal Symptomatic menopausal or female climacteric states [facility] Diagnosis Encounter for gynecological examination (general) (routine) without abnormal findings- Primary Encounter for screening mammogram for malignant neoplasm of breast Other screening mammogram Special screening for malignant neoplasms, colon [facility] Diagnosis Abnormal mammogram- Primary Abnormal mammogram, unspecified [facility] Diagnosis Abnormal mammogram Abnormal mammogram, unspecified [facility] Diagnosis Encounter for screening mammogram for malignant neoplasm of breast Other screening mammogram [facility] Diagnosis Encounter for screening for malignant neoplasm of colon- Primary Special screening for malignant neoplasms, colon Special screening for malignant neoplasms, colon documented in this encounter [facility] for referral (narrative)* Diagnostic Procedure Only (Routine) - Authorized Specialty Diagnoses / Procedures Referred By Geraldo bowers Referred To Contact [facility] Diagnoses LLQ abdominal pain Procedures PELVIC US WHI US PELVIC NONOBSTETRIC REAL-TIME IMAGE Jasmin Avila APRN.CNP [address] [place] [address] [facility] [address] [place] [id number] Referral ID Status Reason Start Date Expiration Date Visits Requested Visits Authorized [id number] Authorized Auto-Generat ed Referral 01/23/2022 01/23/2023 1 1 [facility] for referral (narrative)* Outpatient Procedure (Routine) - Pending Review Specialty Diagnoses / Procedures Referred By Geraldo bowers Referred To Contact [facility] Diagnoses Special screening for malignant neoplasms, colon Procedures COLONOSCOPY SCREENING COLONOSCOPY FLX DX W/COLLJ SPEC WHEN PFRMD Tad Rosa MD [address] [address] [address] Referral ID Status Reason Start Date Expiration Date Visits Requested Visits Authorized [id number] Pending Review Auto-Generat ed Referral 02/26/2022 02/26/2023 1 1 * Diagnostic Procedure Only (Routine) - Pending Review Specialty Diagnoses / Procedures Referred By Geraldo bowers Referred To Contact [facility] Diagnoses Encounter for screening mammogram for malignant neoplasm of breast Procedures ANDREY SCREENING W MAITE SCREENING DIGITAL BREAST TOMOSYNTHESIS BI SCREENING MAMMOGRAPHY BI 2-VIEW BREAST INC CAD Tad Rosa MD [address] [address] [facility] [address] [place] [address] Referral ID Status Reason Start Date Expiration Date Visits Requested Visits Authorized [id number] Pending Review Auto-Generat ed Referral 02/26/2022 03/28/2023 1 1 [facility] for referral (narrative)* Diagnostic Procedure Only (Routine) - Pending Review Specialty Diagnoses / Procedures Referred By Geraldo t Referred To Contact [facility] Diagnoses Abnormal mammogram Procedures US BREAST LTD LT US BREAST UNI REAL TIME WITH IMAGE LIMITED Tad Rosa MD [address] [place] [address] [facility] [address] [place] [address] Referral ID Status Reason Start Date Expiration Date Visits Requested Visits Authorized [id number] Pending Review Auto-Generat ed Referral 05/22/2023 1 1 [facility] for referral (narrative)* Diagnostic Procedure Only (Routine) - Closed Specialty Diagnoses / Procedures Referred By Geraldo bowers Referred To Contact [facility] Diagnoses Abnormal mammogram Procedures US BREAST LTD LT US BREAST UNI REAL TIME WITH IMAGE LIMITED Tad Rosa MD [address] [place] [address] [facility] [address] [place] [phone] Referral ID Status Reason Start Date Expiration Date V isits Requested Visits Authorized [id number] Closed Auto-Generate d Referral 04/22/2022 05/22/2023 1 1 [facility] for referral (narrative)* Diagnostic Procedure Only (Routine) - Closed Specialty Diagnoses / Procedures Referred By Geraldo t Referred To Contact [facility] Diagnoses Encounter for screening mammogram for malignant neoplasm of breast Procedures ANDREY SCREENING W MAITE SCREENING DIGITAL BREAST TOMOSYNTHESIS BI SCREENING MAMMOGRAPHY BI 2-VIEW BREAST INC CAD Tad Rosa MD [address] [place] [address] [facility] [address] [place] [address] Referral ID Status Reason Start Date Expiration Date V isits Requested Visits Authorized [id number] Closed Auto-Generate d Referral 02/26/2022 03/28/2023 1 1 [facility] for referral (narrative)* Outpatient Procedure (Routine) - Closed Specialty Diagnoses / Procedures Referred By Geraldo bowers Referred To Contact [facility] Diagnoses Special screening for malignant neoplasms, colon Procedures COLONOSCOPY SCREENING COLONOSCOPY FLX DX W/COLLJ SPEC WHEN PFRMD Tad Rosa MD [address] [place] [address] [facility] [place] [address] [place] [address] Referral ID Status Reason Start Date Expiration Date V isits Requested Visits Authorized [id number] Closed Auto-Generate d Referral 02/26/2022 02/26/2023 1 1 [facility] for visit Narrative* Diagnostic Procedure Only (Routine) - Closed Specialty Diagnoses / Procedures Referred By Geraldo bowers Referred To Contact [facility] Diagnoses Abnormal mammogram Procedures US BREAST LTD LT US BREAST UNI REAL TIME WITH IMAGE LIMITED Tad Rosa MD [address] [place] [address] [facility] [address] [place] [address] Referral ID Status Reason Start Date Expiration Date V isits Requested Visits Authorized [id number] Closed Auto-Generate d Referral 04/22/2022 05/22/2023 1 1 [facility] for visit Narrative* Diagnostic Procedure Only (Routine) - Closed Specialty Diagnoses / Procedures Referred By Geraldo bowers Referred To Contact [facility] Diagnoses Encounter for screening mammogram for malignant neoplasm of breast Procedures ANDREY SCREENING W MAITE SCREENING DIGITAL BREAST TOMOSYNTHESIS BI SCREENING MAMMOGRAPHY BI 2-VIEW BREAST INC CAD Tad Rosa MD [address] [place] [address] [facility] [address] [place] [address] Referral ID Status Reason Start Date Expiration Date V isits Requested Visits Authorized [id number] Closed Auto-Generate d Referral 02/26/2022 03/28/2023 [facility] Procedure (Routine) - Closed Specialty Diagnoses / Procedures Referred By Geraldo bowers Referred To Contact [facility] Diagnoses Special screening for malignant neoplasms, colon Procedures COLONOSCOPY SCREENING COLONOSCOPY FLX DX W/COLLJ SPEC WHEN PFRMD Tad Rosa MD [address] [place] [address] [facility] [address] [place] [id number] Referral ID Status Reason Start Date Expiration Date V isits Requested Visits Authorized [id number] Closed Auto-Generate d Referral 02/26/2022 02/26/2023 1 1 [facility] Summary Purpose Family History No Family History Records FoundNo Family History Records Found Advance Directives No Advanced Directives Records FoundNo Advanced Directives Records Found Medications Administered Section Inactive Administered Medications - up to 3 most recent administrations Medication Order MAR Action Action Date Dose Rate Site diphenhydrAMINE 12.5-50 mg injection (BENADRYL) 12.5-50 mg, INTRAVENOUS, DIRECTED, Starting on Fri03/25/22 at 0930, Until Fri03/25/22 at 1329, DOSING DIRECTED BY PHYSICIAN FOR PROCEDURAL SEDATION ONLY, Intraprocedure Given 03/25/2022 8:55 AM EDT 50 mg fentaNYL 50 mcg/mL 25-100 mcg injection (SUBLIMAZE) 25-100 mcg, INTRAVENOUS, DIRECTED, Starting on Fri03/25/22 at 0930, Until Fri03/25/22 at 1329, DOSING DIRECTED BY PHYSICIAN FOR PROCEDURAL SEDATION ONLY, Intraprocedure Given 03/25/2022 9:01 AM EDT 50 mcg Additional Source Comments Source Comments (unrecognize d section and content) In the event this informatio n is protected by the Federal Confidentiality of Alcohol and Drug Abuse Patient Records regulations: The Federal rules restrict any use of the information to criminally investigate or prosecute any alcohol or drug abuse patient.[facility] the event this information is protected by the Federal Confidentiality of Alcohol and Drug Abuse Patient Records regulations: The Federal rules restrict any use of the information to criminally investigate or prosecute any alcohol or drug abuse patient.[facility] the event this information is protected by the Federal Confidentiality of Alcohol and Drug Abuse Patient Records regulations: The Federal rules restrict any use of the information to criminally investigate or prosecute any alcohol or drug abuse patient.[facility] the event this information is protected by the Federal Confidentiality of Alcohol and Drug Abuse Patient Records regulations: The Federal rules restrict any use of the information to criminally investigate or prosecute any alcohol or drug abuse patient.[facility] the event this information is protected by the Federal Confidentiality of Alcohol and Drug Abuse Patient Records regulations: The Federal rules restrict any use of the information to criminally investigate or prosecute any alcohol or drug abuse patient.[facility] the event this information is protected by the Federal Confidentiality of Alcohol and Drug Abuse Patient Records regulations: The Federal rules restrict any use of the information to criminally investigate or prosecute any alcohol or drug abuse patient.[facility] the event this information is protected by the Federal Confidentiality of Alcohol and Drug Abuse Patient Records regulations: The Federal rules restrict any use of the information to criminally investigate or prosecute any alcohol or drug abuse patient.[facility] Hospital[facility] the event this information is protected by the Federal Confidentiality of Alcohol and Drug Abuse Patient Records regulations: The Federal rules restrict any use of the information to criminally investigate or prosecute any alcohol or drug abuse patient.[facility] the event this information is protected by the Federal Confidentiality of Alcohol and Drug Abuse Patient Records regulations: The Federal rules restrict any use of the information to criminally investigate or prosecute any alcohol or drug abuse patient.[facility] Reason for Visit (unrecogniz ed section and content) Reason Comments Yearly Exam Reason Comments Orders Care Teams (unrecognized sec tion and content) Promotion Producer Relationship Specialty Start Date End Date Urbano Cardenas MD [address] [place] [address] PCP - General 10/12/03 Promotion Producer Relationship Specialty Start Date End Date Urbano Cardenas MD [address] [place] [address] PCP - General 10/12/03 Promotion Producer Relationship Specialty Start Date End Date Urbano Cardenas MD [address] [place] [place] [address] PCP - General 10/12/03 Promotion Producer Relationship Specialty Start Date End Date Urbano Cardenas MD [address] [place] [address] PCP - General 10/12/03 Promotion Producer Relationship Specialty Start Date End Date Urbano Cardenas MD [address] [place] [address] PCP - General 10/12/03 Promotion Producer Relationship Specialty Start Date End Date Urbano Cardenas MD [address] [place] [address] PCP - General 10/12/03 Promotion Producer Relationship Specialty Start Date End Date Urbano Cardenas MD [address] [address], [place] [address] PCP - General 10/12/03 Promotion Producer Relationship Specialty Start Date End Date Urbano Cardenas MD [address] [address], [place] [address] PCP - General 10/12/03 INFORMATION SOURCE (unrecogn ized section and content) DATE CREATED AUTHOR [facility]23 [facility] FOR RECORDS PERTAINING TO PATIENTS WHO ARE OR HAVE BEEN ENROLLED IN A CHEMICAL DEPENDENCY/SUBSTANCEABUSE PROGRAM, SOME INFORMATION MAY BE OMITTED. This clinical summary was aggregated from multiple sources. Caution should be exercised in using it in the provision of clinical care. This summary normalizes information from multiple sources, and as a consequence, information in this document may materially change the coding, format and clinical context of patient data. In addition, data may be omitted in some cases. CLINICAL DECISIONS SHOULD BE BASED ON THE PRIMARY CLINICAL RECORDS. [facility] [address] [facility]. provides no warranty or guarantee of the accuracy or completeness of information in this document.
== END | disposition home or self-care (01) ==
LOC: OPBI 10:35
PROVIDERS: PCP Family Medicine; Referring Provider Obstetrics & Gynecology; Visit Provider Obstetrics & Gynecology
DX: Z12.31 Encounter for screening mammogram for malignant neoplasm of breast (principal)
CPT/HCPCS: 77063; 77067

== ENCOUNTER → 2024-08-04 | Outpatient (CLI) | payer OTHER, SELFPAY ==
--- NOTE | 2024-08-04 12:21 | BI_ITS ---
PROCEDURE: SCRN MAMM (CAD)W/MAITE BILAT REASON FOR EXAM: F, Age 54 y/o, no family history. Annual follow-up. TECHNIQUE: Bilateral screening digital breast tomosynthesis with 2D and 3D images. Computer aided detection. COMPARISON: Prior exam(s) dating back to June 20, 2023.. FINDINGS: The breasts are extremely dense which lowers the sensitivity of mammography. Stable examination. No suspicious masses, areas of developing architectural distortion, or suspicious calcifications. There is a 5.2 mm x 5 mm well-defined nodule in the deep slightly upper lateral aspect of the left breast. Correlation with ultrasound recommended. BI/SCRN MAMM (CAD)W/MAITE BILAT IMPRESSION: BI-RADS 0: INCOMPLETE - NEED ADDITIONAL IMAGING EVALUATION. Follow-up code: Sonographic correlation of the left breast recommended. The patient will be notified of the results by letter. Reading Location: [id number]
== END | disposition home or self-care (01) ==
LOC: OPBI 12:20
PROVIDERS: PCP Family Medicine; Referring Provider Obstetrics & Gynecology; Visit Provider Obstetrics & Gynecology
DX: Z12.31 Encounter for screening mammogram for malignant neoplasm of breast (principal)
CPT/HCPCS: 77063; 77067

== ENCOUNTER → 2024-08-09 | Outpatient (CLI) | payer OTHER, SELFPAY ==
--- NOTE | 2024-08-09 14:32 | US_ITS ---
PROCEDURE: BREAST LIMITED UNILATERAL REASON FOR EXAM: 54-year-old female presents for follow-up examination of the left breast findings seen the screening mammogram 08/04/2024. No family history of breast cancer. TECHNIQUE: Targeted left breast ultrasound. COMPARISON: Mammogram 08/04/2024, 06/20/2023 FINDINGS: LEFT: Follow-up examination performed for the asymmetry in the lateral left breast visualized on the examination of 08/04/2024. On the present examination, ultrasound performed of the left breast demonstrates in architecturally normal-appearing intramammary lymph node with preserved fatty mehrdad measuring 0.6 x 0.5 x 0.3 cm, this is likely the correlate for the mammographic finding. Also, there are 2 simple cysts seen in the left breast at 4 o'clock 6 cm from the nipple measuring 0.7 x 0.6 x 0.6 cm and at 4 o'clock 7 cm from the nipple measuring 0.4 x 0.4 x 0.3 cm. US/Breast Limited Unilateral IMPRESSION: Benign intramammary lymph node and benign cysts in the left breast. BI-RADS 2: BENIGN. RECOMMEND ANNUAL MAMMOGRAPHIC SCREENING. Follow-up code: Routine Follow-up Reading Location: [id number]
== END | disposition home or self-care (01) ==
PROVIDERS: PCP Family Medicine; Referring Provider Obstetrics & Gynecology; Visit Provider Obstetrics & Gynecology
DX: N60.02 Solitary cyst of left breast (principal)
CPT/HCPCS: 76642

== ENCOUNTER → 2024-10-14 | Outpatient (CLI) | payer OTHER, SELFPAY ==
--- NOTE | 2024-10-14 10:25 | RAD_ITS ---
PROCEDURE: CHEST PA AND LATERAL 10/14/2024 REASON FOR EXAM: COUGH TECHNIQUE: Frontal and lateral views of the chest. COMPARISON: None. RAD/Chest PA and Lateral IMPRESSION: Minimal degenerative changes of the thoracic spine are seen. At least mild tano ateral acromioclavicular joint degenerative changes are noted. No acute osseous process is seen. Lungs appear clear throughout. No pleural effusion or pneumothorax is noted. The cardiomediastinal silhouette is within the normal range. No evidence of acute cardiopulmonary disease. Reading Location: [place] [address]
== END | disposition home or self-care (01) ==
LOC: RAD 10:22
PROVIDERS: PCP Family Medicine
DX: R05.9 Cough, unspecified (principal)
CPT/HCPCS: 71046

== ENCOUNTER → 2025-03-03 | Outpatient (CLI) | payer OTHER, SELFPAY ==
[2025-03-03 12:39] LABS: Anion Gap 10 (5-15); BUN 11 mg/dL (4-19); BUN/Creat Ratio 15.8 RATIO (10-20); Calcium,Total 9.1 mg/dL (7.6-11.0); Carbon Dioxide 27.7 mmol/L (21.0-32.0); Chloride 101 mmol/L (98-108); Glucose 86 mg/dL (70-99); Potassium 4.2 mmol/L (3.3-5.1)
== END | disposition home or self-care (01) ==
LOC: MFPLAB 08:22
PROVIDERS: PCP Family Medicine; Referring Provider Family Medicine; Visit Provider Family Medicine
DX: I10 Essential (primary) hypertension (principal)
CPT/HCPCS: 36415; 80048